=== PATIENT | male | born 1990 | race American Indian/Alaskan Native ===

== ENCOUNTER 2020-04-23 12:40 | Emergency (ER) | payer SELFPAY ==
[2020-04-23] MEDS ORDERED: Diphtheria,Pertussis(Acell),Tetanus Vaccine 0.5 ML Syringe IM ONE (13:03)
[2020-04-23] MEDS ORDERED: fentaNYL 100 MCG/2 ML SDV IVPUSH ONE (13:10)
[2020-04-23] MEDS ORDERED: Sodium Chloride 0.9% 10 ML Syringe FLUSH PRN (13:10)
--- NOTE | 2020-04-23 13:12 | CR ---
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 Near amputation. Interpretation: 3 views confirm severe soft tissue laceration and underlying spiral mid diaphyseal FRACTURE distal phalanx right thumb with bony diastases greater than 5 mm but near anatomic alignment. No involvement of the DIP joint or proximal bones right thumb. Adjacent second digit uninvolved. No foreign bodies. Conclusion: Abnormal.
--- NOTE | 2020-04-23 13:19 | EDM.PDOC ---
<Cookie Mcdowell - Last Filed: 04/23/20 13:13> ED HPI GENERAL MEDICAL PROBLEM - General Chief Complaint: Laceration Stated Complaint: SMASHED FINGER/WRAPPED UP IN METAL WIRE Time Seen by Provider: 04/23/20 12:50 Source of Information: Reports: Patient, RN, RN Notes Reviewed History Limitations: Reports: No Limitations - History of Present Illness INITIAL COMMENTS - FREE TEXT/NARRATIVE: 30 male patient arrives to ED with report of traumatic partial amputation. states he had a 3 ton object smash his right thumb. denies injury to any other location. denies recent illness, n/v/d/, denies SOB, CP. Onset: Today Quality: Reports: Sharp Severity: Severe Right Finger-Thumb Pain Score (Numeric/FACES): 10 - Related Data Allergies Allergy/AdvReac Type Severity Reaction Status Date / Time No Known Allergies Allergy Verified 04/23/20 12:57 Home Meds: Home Meds . [No Known Home Meds] 04/23/20 [History] Past Medical History - Past Health History Medical/Surgical History: Denies Medical/Surgical History HEENT History: Reports: None Cardiovascular History: Reports: None Respiratory History: Reports: None Gastrointestinal History: Reports: None Genitourinary History: Reports: None Musculoskeletal History: Reports: None Neurological History: Reports: None Psychiatric History: Reports: None Endocrine/Metabolic History: Reports: None Hematologic History: Reports: None Immunologic History: Reports: None Oncologic (Cancer) History: Reports: None Dermatologic History: Reports: None - Infectious Disease History Infectious Disease History: Reports: None - Past Surgical History Head Surgeries/Procedures: Reports: None Social & Family History - Family History Family Medical History: No Pertinent Family History - Tobacco Use Tobacco Use Status *Q: Never Tobacco User Second Hand Smoke Exposure: No - Caffeine Use Caffeine Use: Reports: Coffee, Energy Drinks - Alcohol Use Days Per Week of Alcohol Use: 2 Number of Drinks Per Day: 3 Total Drinks Per Week: 6 - Recreational Drug Use Recreational Drug Use: Yes Drug Use in Last 12 Months: Yes Recreational Drug Type: Reports: Marijuana/Hashish ED ROS GENERAL - Review of Systems Review Of Systems: Comprehensive ROS is negative, except as noted in HPI. ED EXAM, SKIN/RASH Exam: See Below Exam Limited By: No Limitations General Appearance: Alert, WD/WN, Moderate Distress Eye Exam: Bilateral Eye: EOMI, Normal Inspection Ears: Normal External Exam, Hearing Grossly Normal Nose: Normal Inspection, No Blood Throat/Mouth: Normal Inspection, Normal Voice, No Airway Compromise Head: Atraumatic, Normocephalic Neck: Normal Inspection, Full Range of Motion Respiratory/Chest: No Respiratory Distress, Lungs Clear, Normal Breath Sounds, No Accessory Muscle Use Cardiovascular: Normal Peripheral Pulses GI/Abdominal: Normal Bowel Sounds (Male) Exam: Deferred Rectal (Males) Exam: Deferred Back Exam: Normal Inspection, Full Range of Motion Extremities: Normal Inspection, Other (partial amputation distal phalanax right thumb) Neurological: Alert, Oriented, CN II-XII Intact, Normal Cognition, Normal Gait Psychiatric: Normal Affect, Normal Mood Skin: Warm, Dry, Intact, Other (see extremity assessment) Location, Skin: Upper Extremity, Right Departure - Departure Disposition: DC/Tfer to [facility] 02 Clinical Impression: Avulsion fracture 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 Qualifiers: Encounter type: initial encounter Qualified Code(s): S68.521A - Partial traumatic transphalangeal amputation of right thumb, initial encounter - Discharge Information Forms: ED Department Discharge, Interfacility Transfer [facility] Sepsis Event Note (ED) - Evaluation Sepsis Screening Result: No Definite Risk <Rose Mary Campbell - Last Filed: 04/23/20 14:09> ED EXAM, SKIN/RASH Extremities: Other (partial amputation distal phalanax right thumb, circumferential) Skin: Other Location, Skin: Upper Extremity, Right Lymphatic: No Adenopathy Course - Vital Signs Last Recorded V/S: Last Vital Signs Temp 99.5 F 04/23/20 12:58 Pulse 86 04/23/20 12:58 Resp 20 04/23/20 12:58 BP 145/91 H 04/23/20 12:58 Pulse Ox 100 04/23/20 12:58 - Orders/Labs/Meds Orders: Active Orders 24 hr Category Date Time Status Peripheral IV Care [RC] . DIRECTED Care 04/23/20 13:10 Active Vaccines to be Administered [RC] PER UNIT ROUTINE Care 04/23/20 13:03 Active Sodium Chloride 0.9% [Saline Flush] Med 04/23/20 13:10 Active 10 ml FLUSH ASDIRECTED PRN Peripheral IV Insertion Adult [OM.PC] Routine Oth 04/23/20 13:10 Ordered Medication Orders Sodium Chloride (Saline Flush) 10 ml FLUSH ASDIRECTED PRN PRN Reason: Keep Vein Open Last Admin: 04/23/20 13:22 Dose: 10 ml Documented by: MARIA A Hansons: Medications Generic Name Dose Route Start Last Admin Trade Name Jose PRN Reason Stop Dose Admin Sodium Chloride 10 ml 04/23/20 13:10 04/23/20 13:22 Saline Flush FLUSH 10 ml ASDIRECTED PRN Administration Keep Vein Open Discontinued Medications Generic Name Dose Route Start Last Admin Trade Name Frejesse PRN Reason Stop Dose Admin Diphtheria/Tetanus/Acell Pertussis 0.5 ml 04/23/20 13:03 04/23/20 13:22 Boostrix IM 04/23/20 13:04 0.5 ml .ONCE ONE Administration Fentanyl 100 mcg 04/23/20 13:10 04/23/20 13:22 Sublimaze IVPUSH 04/23/20 13:11 100 mcg ONETIME ONE Administration Hydromorphone HCl 1 mg 04/23/20 13:42 04/23/20 13:53 Dilaudid IVPUSH 04/23/20 13:43 1 mg ONETIME ONE Administration Ondansetron HCl 4 mg 04/23/20 13:44 04/23/20 13:53 Zofran IVPUSH 04/23/20 13:45 4 mg ONETIME ONE Administration - Re-Assessments/Exams Free Text/Narrative Re-Assessment/Exam: 04/23/20 14:01 I personally performed or re-performed the physical examination and medical decision making. I have verified all student documentation or findings, including history, physical exam and/or medical decision making. 04/23/20 14:06 Discussed patient case with Dr. Carvajal who agreed to accept the patient for transfer to [place] for amputation. Patient will need to be picked up after the procedure, he is aware of this. Departure - Departure Time of Disposition: 14:08 Condition: Fair - Discharge Information *PRESCRIPTION DRUG MONITORING PROGRAM REVIEWED*: No *COPY OF PRESCRIPTION DRUG MONITORING REPORT IN PATIENT ANA: No Sepsis Event Note (ED) - Focused Exam Vital Signs: Vital Signs Temp Pulse Resp BP Pulse Ox 04/23/20 12:58 99.5 F 86 20 145/91 H 100
[2020-04-23] MEDS ORDERED: HYDROmorphone 1 MG/ML Syringe IVPUSH ONE ×2 (13:42→14:21)
[2020-04-23] MEDS ORDERED: Ondansetron 4 MG/2 ML SDV IVPUSH ONE (13:44)
== END 2020-04-23 14:44 ==
LOC: DL.ED 12:40
DX: S68.521A Partial traumatic transphalangeal amputation of right thumb, initial encounter (principal); Z20.828 Contact with and (suspected) exposure to other viral communicable diseases; Z23 Encounter for immunization; W23.0XXA Caught, crushed, jammed, or pinched between moving objects, initial encounter
CPT/HCPCS: 73140-F5; 90471; 90715; 96374; 96375; 96376; 99284; 99285-25; J1170; J2405; J3010; U0002